=== PATIENT | female | born 1980 | race Caucasian/White ===

== ENCOUNTER 2022-04-28 23:07 | Emergency (ER) | payer BC ==
[~2022-04-28] VITALS: Ht 160 cm; Wt 61.2 kg
[2022-04-28] MEDS ORDERED: CEPHALEXIN500 M1 PO (23:34)
[2022-04-28] MEDS ORDERED: PREDNISONE20 M1 PO (23:34)
== END 2022-04-28 23:53 | disposition home or self-care (01) ==
LOC: ED 23:07
DX: R21 Rash and other nonspecific skin eruption (principal)